=== PATIENT | male | born 1975 | race Caucasian/White ===

== ENCOUNTER 2022-09-17 16:47 | Emergency (ER) | payer OTHER, SELFPAY ==
[2022-09-17 16:56] VITALS: BP 145/87; PULSE 81; RESP 16; TEMP 36.4; O2SAT 97
--- NOTE | 2022-09-17 17:08 | ED.EAR ---
HPI - Ear Problem General Chief complaint: Ear Stated complaint: Ears Time Seen by Provider: 09/17/22 17:08 Source: patient and RN notes reviewed History of Present Illness HPI Narrative: Patient is a 47-year-old male who presents to urgent care with complaints of bilateral ears clogged. Patient states he has had for approximately 3 days with decreased hearing, pressure and pain. Patient has overrly used Q-tips. Also use [id number] drops. No other acute complaints. No acute distress noted. Patient aware of the plan of care. Some parts of this dictation were generated by voice recognition software and may contain typographical and/or grammatical inaccuracies. Related Data Home Medications Medication Instructions Recorded Confirmed modafinil 09/17/22 venlafaxine 09/17/22 Allergies Allergy/AdvReac Type Severity Reaction Status Date / Time tramadol AdvReac Intermediate Headache Verified 03/21/18 10:24 Review of Systems Review of Systems: CONSTITUTIONAL: Denies fever, chills, or sweats. EYES: Denies visual changes, redness, or discharge. ENT: Denies rhinorrhea, congestion, sore throat. Reports bilateral otalgia with decreased hearing CARDIOVASCULAR: Denies chest pain, palpitations, or edema. RESPIRATORY: Denies cough or dyspnea. GASTROINTESTINAL: Denies abdominal pain, nausea, vomiting, or diarrhea. GENITOURINARY: Denies dysuria or hematuria. SKIN: Denies rash or itching. MUSCULOSKELETAL: Denies back pain, joint pain, or myalgia. NEUROLOGIC: Denies headache, numbness, or weakness. All other systems reviewed are negative, except as documented in HPI. PMFSH Comments At the time of my signature, I reviewed and agree with the nursing past medical, surgical, social, and family history. There is no relevant family history pertinent to the patient complaint. Exam Narrative: GENERAL: This is a well-nourished, well-developed patient, in no apparent distress. HEAD: normocephalic, atraumatic. EYES: PERRL. Sclera clear/white. Vision is grossly intact. EARS: External ears normal, auditory canals clear and without drainage, unable to visualize bilateral TMs due to cerumen impaction. Hearing grossly intact. NOSE: External nose normal with no obvious nasal discharge, nares without redness, no rhinorrhea. THROAT: Mucous membranes moist, posterior pharynx clear. NECK: Neck supple, SKIN: warm, intact with no suspicious lesions or rash, good texture and turgor. NEURO: awake, alert, and oriented to person, place and time. There were no obvious focal neurologic abnormalities. EXTREMITIES: No clubbing, cyanosis, or edema. Course Course Level of Care: Express Care Visit Vital Signs Vital signs: Vital Signs Temperature 97.6 F 09/17/22 16:56 Pulse Rate 81 09/17/22 16:56 Respiratory Rate 16 09/17/22 16:56 Blood Pressure 145/87 H 09/17/22 16:56 Pulse Oximetry 97 09/17/22 16:56 Oxygen Delivery Room Air 09/17/22 16:56 Temperature 97.6 F 09/17/22 16:56 Pulse Rate 81 09/17/22 16:56 Respiratory Rate 16 09/17/22 16:56 Blood Pressure 145/87 H 09/17/22 16:56 Pulse Oximetry 97 09/17/22 16:56 Oxygen Delivery Room Air 09/17/22 16:56 Reviewed- Patient is informed that they may have pre-hypertension or hypertension based on a blood pressure reading in the department. I recommend the patient call the primary care provider listed on their discharge instructions or a physician of their choice this week to arrange follow-up for further evaluation of possible pre-hypertension or hypertension. Procedures Ear Wax Removal Both Ears: Cerumenolytic Used: other (50 50 peroxide and warm water and lighted curette) Results: Re-examined: cerumen removed completely TM Examination: TM(s) intact, normal appearance Ear Canal Exam: atraumatic Patient Tolerated Procedure: no complications Complications: no problems Medical Decision Making MDM Narrative Medical decision horacio
== END 2022-09-17 17:50 | disposition home or self-care (01) ==
PROVIDERS: Emergency Provider Nurse Practitioner Family; PCP Emergency Medicine
DX: H61.23 Impacted cerumen, bilateral (principal)
CPT/HCPCS: 69210; 99202; G0463

== ENCOUNTER 2022-10-04 09:33 | Outpatient (CLI) | payer OTHER, SELFPAY ==
--- NOTE | ~2022-10-04 | XR_ITS ---
EXAMINATION: XR chest 2V 10/04/2022 10:14 INDICATION: Prior tobacco use. PROCEDURE: 2 view chest COMPARISON: No prior studies for comparison. FINDINGS: The lungs are clear. The cardiomediastinal silhouette is within normal limits. There are no pleural effusions. There is no pneumothorax suspected. IMPRESSION: 1: NO ACUTE CARDIOPULMONARY DISEASE. Reviewed, dictated and finalized at location L.
[2022-10-04 10:11] LABS: Hematocrit 48.8 % (42.0-52.0); Hemoglobin 16.8 g/dL (14.0-18.0); Mean Corpuscular HGB Conc 34.4 g/dl (32-36); Mean Corpuscular Hemoglobin 33.1 pg (26-34); Mean Corpuscular Volume 96.1 fl (80-100); Mean Platelet Volume 10.3 fl (7.4-10.4); Platelet Count Result 237 k/mm3 (150-375); Red Blood Count 5.08 M/mm3 (4.6-6.20); Red Cell Distribution Width 12.9 % (11.5-14.5); White Blood Count 13.3 K/mm3 (4.5-10.0)
[2022-10-04 10:39] LABS: Alanine Aminotransferase 47 U/L (6-50); Albumin Level 4.8 g/dL (3.5-5.1); Alkaline Phosphatase 116 U/L (38-126); Anion Gap 5 mmol/L (8-16); Aspartate Amino Transferase 59 U/L (17-59); Bilirubin,Total 1.8 mg/dL (0.2-1.3); Blood Urea Nitrogen 13 mg/dL (9-20); Carbon Dioxide 29 mmol/L (22-30); Chloride 103 mmol/L (98-107); Cholesterol 244 mg/dL (0-200); Estimated Glomerular Filt Rate > 60; Glucose 116 mg/dL (65-110); HDL Direct 35 mg/dL; Sodium 137 mmol/L (137-145); Triglycerides 285 mg/dL (<150)
[2022-10-04 10:50] LABS: LDL Cholesterol Direct 146 mg/dL
[2022-10-04 11:11] LABS: Free T4 Free Thyroxine 0.78 ng/mL (0.78-2.19); Prostate Specific Antigen 1.8 ng/mL (< OR = 4.0)
[2022-10-04 11:25] LABS: Appearance Urine Cloudy (Clear); Bacteria Urine None Seen /hpf; Bilirubin Urine 1+ (Negative); Blood Urine Negative (Negative); Color Urine Dark Yellow (Yellow); Glucose Urine UA Negative (Negative); Ketones Urine Negative (Negative); Leukocyte Esterase Ur 1+ LEU/UL (NEGATIVE); Need Manual Microscopic Reviewed; Nitrate Urine Negative (Negative); Protein Urine Trace mg/dL (Negative); Specific Grav Ur 1.028 (1.001-1.035); Squamous Epithelial Cell Urine None seen /hpf (Few); WBC Urine 21-50 /hpf (0-3); pH Urine 5.5 (5.0-9.0)
[2022-10-04 11:28] LABS: Add Urine Microscopic? YES
== END 2022-10-04 09:34 | disposition home or self-care (01) ==
PROVIDERS: PCP Emergency Medicine; Visit Provider Emergency Medicine
DX: K43.2 Incisional hernia without obstruction or gangrene (principal); F41.9 Anxiety disorder, unspecified; F32.A Depression, unspecified; Z87.891 Personal history of nicotine dependence; Z80.0 Family history of malignant neoplasm of digestive organs
CPT/HCPCS: 36415; 71046; 80053; 80061; 81001; 84153; 84439; 84443; 85027

== ENCOUNTER 2022-10-11 02:17 | Day surgery (SDC) | payer OTHER, SELFPAY ==
[2022-10-04 10:26] VITALS: BMI 41.9
--- NOTE | 2022-10-04 10:30 | PC.NURSE ---
Report to the Outpatient Waiting Room, entrance under the green pavilion located off [facility], at time 10:00 on date 10/11/22. Planned Procedure Time: 12:00. Time changes happen often and if your time is changed the preop area will call you the afternoon before. - You and your visitor will be asked to self-screen and do not enter if you have any COVID symptoms. - A mask is optional within the hospital at this time. Patients may have clear liquids (water, carbonated beverages, clear teas, apple juice) until 3 hours prior to surgery (9:00) with a maximum of 20 ounces. - No food from midnight until time of surgery Take the following medications with a SIP of water the morning of surgery: DO NOT STOP ANY OF YOUR OTHER PRESCRIPTION MEDICATIONS PRIOR TO SURGERY EXCEPT THE FOLLOWING Medications to discontinue per physician Date to take last dose Please no make-up, nail kyrgyz, hairspray, perfume, deodorant, or body powder the day of surgery. No jewelry (including any body piercings) or valuables the day of surgery, leave them at home. Please take a shower or bath the night before, or the morning of, surgery with an antibacterial soap (HIBICLENS). Wear comfortable, loose fitting clothing. - Jewelry must be removed prior to entering the operating room. Rings and piercings that are not removed may be cut off. - The hospital will not accept responsibility for valuables. - Please leave all valuables, including medications, at home the day of surgery. If you are going home after surgery, a licensed patrol driver must drive you home. - NO public transportation without another adult if you receive anesthesia. - We recommend that an adult stay with you for 24 hours following discharge. - We also recommend that you do not drive, make important decision, drink alcoholic beverages, or take any drugs that were not prescribed by your health care provider for at least 24 hours after your discharge time. Follow any additional instructions given to you from your surgeon. If you or anyone in your household have experienced Covid symptoms in the past week, please notify your surgeon or the nurse liaison at the phone number below for possible testing. Telephone instructions given to RENE ALFARO and asked if any additional questions and then verbalized understanding. Patient advised to call surgeon office or pre surgery nurse liaison [phone] if any additional questions.
--- NOTE | 2022-10-04 10:33 | PC.NURSE ---
Report to the Outpatient Waiting Room, entrance under the green pavilion located off [facility], at time 1000 on date 10/11/22. Planned Procedure Time: 1200. Time changes happen often and if your time is changed the preop area will call you the afternoon before. - You and your visitor will be asked to self-screen and do not enter if you have any COVID symptoms. - A mask is optional within the hospital at this time. Patients may have clear liquids (water, carbonated beverages, clear teas, apple juice) until 3 hours prior to surgery with a maximum of 20 ounces. - No food from midnight until time of surgery Take the following medications with a SIP of water the morning of surgery: VENLAFAXINE DO NOT STOP ANY OF YOUR OTHER PRESCRIPTION MEDICATIONS PRIOR TO SURGERY EXCEPT THE FOLLOWING Medications to discontinue per physician: N/A Date to take last dose: N/A Please no make-up, nail cambodian, hairspray, perfume, deodorant, or body powder the day of surgery. No jewelry (including any body piercings) or valuables the day of surgery, leave them at home. Please take a shower or bath the night before, or the morning of, surgery with an antibacterial soap (HIBICLENS). Wear comfortable, loose fitting clothing. - Jewelry must be removed prior to entering the operating room. Rings and piercings that are not removed may be cut off. - The hospital will not accept responsibility for valuables. - Please leave all valuables, including medications, at home the day of surgery. If you are going home after surgery, a licensed tow car driver must drive you home. - NO public transportation without another adult if you receive anesthesia. - We recommend that an adult stay with you for 24 hours following discharge. - We also recommend that you do not drive, make important decision, drink alcoholic beverages, or take any drugs that were not prescribed by your health care provider for at least 24 hours after your discharge time. Follow any additional instructions given to you from your surgeon. If you or anyone in your household have experienced Covid symptoms in the past week, please notify your surgeon or the nurse liaison at the phone number below for possible testing. Telephone instructions given to PT - MICHAEL ALFARO and asked if any additional questions and then verbalized understanding. Patient advised to call surgeon office or pre surgery nurse liaison [phone] if any additional questions.
[2022-10-11] VITALS (14 sets, daily range): BP systolic 114–163; BP diastolic 65–98; PULSE 80–103; RESP 14–20; TEMP 35.1–37.1; O2SAT 92–97
--- NOTE | 2022-10-11 10:42 | P.PNAN_ITS ---
Anes - Initial Pre Proc Eval Procedure: Operation Date: 10/11/22 12:00 Proposed Procedures p Robotic Laparoscopic Incisional Hernia Repair - Jason Monterroso MD Date/Time: 10/11/22 10:42 Surgeon: Jason Monterroso MD Pre Op Diagnosis: incisional hernia Patient Data Age: 47 Gender: M Height: 1.83 m Weight: 140.2 kg Allergies Allergy/AdvReac Type Severity Reaction Status Date / Time tramadol AdvReac Intermediate Headache Verified 10/04/22 10:25 Home Medications Medication Instructions Recorded Confirmed Type modafinil 200 mg tablet 200 mg PO DAILY 10/04/22 10/04/22 History venlafaxine 150 mg 150 mg PO DAILY 10/04/22 10/04/22 History capsule,extended release 24 hr Patient hx anesthesia problems: none Family hx anesthesia problems: none Results Review: All pre-operative results and documents have been reviewed as part of the pre- operative evaluation. [facility] Past Medical History Medical History Anxiety Depression Kidney stones Surgical History Surgical History History of back surgery 2019 History of laparoscopic cholecystectomy 2009 History of lithotripsy Family History Family History (Updated 10/04/22 @ 09:06 by Natasha Valerio) Father Lung cancer Mother Hypertension Social History Social History (Updated 10/04/22 @ 09:07 by Natasha Valerio) Smoking packs per day: 0.5 Smoking cigarettes per day: 10.0 Years smoked: 17 Smoking pack-years: 8.50 Smoking status: Current every day smoker Tobacco type: cigarettes Alcohol intake: current Alcohol use details: VERY RARE Substance use: current Substance use type: marijuana Living arrangements: with family Spiritual care concerns: No Anes - Eval Final PreProcedure Day of Procedure 10/11/22 10:42 Patient weight: morbidly obese Heart: regular rate and rhythm Lungs: clear to auscultation Airway: Mallampati scale class II and special considerations poor dentition Neurological: alert and oriented Last oral intake: >/= 8 hours ASA classification: III Emergent: no Anesthetic plan: proceed Anesthesia type and monitoring: general ETT and standard monitoring Results Review: All pre-operative results and documents have been reviewed as part of the pre-o perative evaluation. Informed Consent: The patient's anesthetic plan and its attendant risks and benefits were discussed with the patient/family/POA. Questions were solicited and answers provided to the satisfaction of the patient/family/POA.
[2022-10-11] MEDS: KETOROLAC 15 MG/ML VIAL (*BKC) IV PUSH (10:50)
[2022-10-11] MEDS: ACETAMINOPHEN 500 MG TABLET 1000 MG PO (10:50)
[2022-10-11] MEDS: LACTATED RINGERS 1,000 ML 30 ML IV CONT ×2 (10:50→14:36)
--- NOTE | 2022-10-11 11:29 | WPDHPUPDATE1 ---
History and Physical Update Update Date/Time: 10/11/22 11:29 History and Physical has been reviewed, including an updated exam of the patient. There are NO changes in the patient's condition. Risks, benefits, and alternatives have been discussed and questions answered. Patient agrees to proceed with procedure.
[2022-10-11] MEDS: ceFAZolin 3 GM/D5W 100 ML 100 ML IVPB (11:53)
[2022-10-11] MEDS: BUPIVACAINE/EPINEPHRINE 0.5% 50 ML VIAL 20 ML INFILTRATE (12:47)
--- NOTE | 2022-10-11 15:23 | W.PM.PROC2 ---
Procedure Note - Detailed Date of Procedure 10/11/22 Pre-op Diagnosis incisional hernia Post-op Diagnosis Same Procedure Performed Robotic laparoscopic repair 5 cm ventral incisional hernia with mesh Surgeon Jason Monterroso MD Bear Keeper Greg TINSLEY Anesthesia General and Local (0.5% Marcaine with epinephrine) Indications Patient noted a bulge just above the umbilicus on the left side. It is painful when he coughs or strains. He had a laparoscopic cholecystectomy and it is very close to the incision from that surgery. He was seen in the office and found to have an incisional periumbilical hernia. He is taken to surgery now for robotic laparoscopic repair with mesh. Findings The largest hernia was 3 cm. There was 3 other hernias which were 1 cm, 6 mm, and 5 mm. These hernias were all within a cm of 1 another. They were all centered around the umbilicus. Description of Procedure Patient was taken to surgery and induced into general anesthesia. His left side was elevated with some towels to create a bump. This gave good exposure to the lateral side of his abdomen on the left. Prep and drape was carried out. The initial trocar was in the left subcostal position and was then applied Medical optical trocar. Local anesthetic was infiltrated prior to placement of each of the trocars. After the initial 5 mm trocar was placed, we then inserted a laparoscopic open and placed the left lower quadrant trocar as well as the intermediate trocar for the camera under direct visualization. These were both 8 mm robotic trocars. We then switched the camera and exchanged the 5 mm trocar for another 8 mm robotic trocar. We then brought in robot. The camera was docked and targeted. The 2 arms were then docked and instruments positioned near the hernia. The surgeon then went to the console. Some peritoneum and properitoneal fat in the hernia defect were reduced. Some fatty tissue in the anterior abdominal wall caudal to the hernia defect was then taken down to give ample room for the mesh. Dissection was done around the hernia defect and the 3 other hernia defects were found. One was to the right of the main hernia defect and was 1 cm. There were 2 smaller hernia defects caudal to the main hernia defect. Each of these were 6 mm and 5 mm respectively. All these hernias were reduced. I searched for any other defects and did not find any. I then freed the falciform ligament from the anterior abdominal wall and proceeded cephalad until there was adequate exposure of the anterior abdominal wall for mesh placement in this direction. An 0 V lock 180 suture was then passed into the abdomen. The hernia defect as well as the right-sided smaller defect were then closed transversely with running locking suture. The smaller defects were left as is. A 15 x [address] mesh was then placed in the peritoneal cavity. The V lock suture was passed through the center of the mesh and the mesh was placed on the anterior abdominal wall. It was placed such that it would cover all the hernia defects with at least 5 cm overlap in all directions. The V lock needle was used to keep the mesh in place at its center. Two 0 V lock was then used to secure the mesh to the anterior abdominal wall. We started on the right posterior aspect. Running suture was then placed proceeding 1st caudally and then around to the right side. Several 2 0 V lock suture were required. Once the mesh was sutured securely to the anterior abdominal wall, I used an additional 2 0 V lock and ran this suture in the midline along the length of the mesh to further secure it to the anterior abdominal wall and the hernia defect. All looked good. We then cut each of the suture and removed all the needles. The robot was undocked and CO2 was evacuated from the abdominal cavity. The trocars were removed. Skin wounds were closed with subcuticular 4-0 Monocryl skin suture. The wounds were dressed with Exofin surg
[2022-10-11] MEDS: fentaNYL CITRATE INJ (*CRX) 100 MCG/2 ML VIAL 25 MCG IV PUSH ×8 (15:26→16:07)
--- NOTE | 2022-10-11 16:30 | ADMGEN ---
This patient, Gino Hernandez, was admitted to Medical Room 245-. Patient/family oriented to hospital policies and general routines including ID bracelet, bed and alarms, visiting hours, pain management, procedures, bathroom and other care routines, personal items, smoking policy, room service/diet, and visiting hours. Information on how to activate the Rapid Response Team has been discussed. Patient/Family are encouraged to report perceived risks to care and to ask questions if they do not understand what they are told or what they should do.
[2022-10-11] MEDS: LACTATED RINGERS 1,000 ML 100 ML IV CONT (16:45)
[2022-10-11] MEDS: HYDROmorphone HCL INJ (*CRX) 1 MG/ML SYR IV PUSH (17:06)
[2022-10-11] MEDS: oxyCODONE/ACETAMINOPHEN (*CRX) 10-325 MG TABLET 1 TAB PO (20:37)
[2022-10-11] MEDS: SENNA/DOCUSATE SODIUM TABLET 2 TAB PO (20:38)
[2022-10-12 00:13] VITALS: BP 118/69; PULSE 92; RESP 20; TEMP 36.4; O2SAT 94
[2022-10-12] MEDS: ACETAMINOPHEN 500 MG TABLET PO (01:26)
[2022-10-12 04:54] VITALS: BP 129/83; PULSE 81; RESP 20; TEMP 36.4; O2SAT 92
[2022-10-12 05:00] VITALS: PULSE 81; RESP 20; O2SAT 92
[2022-10-12 06:28] LABS: Hematocrit 42.6 % (42.0-52.0); Hemoglobin 14.6 g/dL (14.0-18.0); Mean Corpuscular HGB Conc 34.3 g/dl (32-36); Mean Corpuscular Hemoglobin 32.8 pg (26-34); Mean Corpuscular Volume 95.7 fl (80-100); Mean Platelet Volume 10.6 fl (7.4-10.4); Platelet Count Result 226 k/mm3 (150-375); Red Blood Count 4.45 M/mm3 (4.6-6.20); Red Cell Distribution Width 12.3 % (11.5-14.5); White Blood Count 18.3 K/mm3 (4.5-10.0)
[2022-10-12 06:40] LABS: Anion Gap 8 mmol/L (8-16); Blood Urea Nitrogen 11 mg/dL (9-20); Calcium 8.8 mg/dL (8.4-10.2); Carbon Dioxide 25 mmol/L (22-30); Chloride 102 mmol/L (98-107); Estimated CRCL calculation 164 ml/min; Estimated Glomerular Filt Rate > 60; Glucose 125 mg/dL (65-110); Potassium 4.2 mmol/L (3.4-5.0); Sodium 135 mmol/L (137-145)
--- NOTE | 2022-10-12 07:19 | PM.DS ---
DS: Admitting Diagnosis Discharge Date 10/12/2022 Admitting Diagnosis INCISIONAL VENTRAL HERNIA DS: Discharge Diagnosis Discharge Diagnosis (1) Incisional hernia: Code(s): K43.2 - Incisional hernia without obstruction or gangrene Status: Chronic DS: Summary Hospital Course Hospital Course: Patient has history of laparoscopic cholecystectomy. He had an incision at the umbilicus. He presented with a bulge in the umbilical area associated with the scar. It was painful and could not fully be reduced. He was taken to surgery on 10/11/2022. He underwent robotic laparoscopic repair of the incisional hernia with mesh. He actually had the main 3 cm incisional hernia but also 3 other smaller hernias in the area making the overall defect size just over 5 cm. He had a 20 x [address] underlay mesh placed after primary closure of the hernia defect. Patient was observed overnight. He did well and was comfortable on oral analgesics. He was able to be discharged in good condition the day after surgery, 10/12/2022. Status at Discharge Overall status at discharge: patient is progressing back to baseline Time Spent with Patient Time attestation: Total time spent providing and/or coordinating discharge services: Time spent: Less than 30 minutes DS: Data Data Completed and Pending Labs on day of discharge: Labs from last 24 hours 10/12/22 10/12/22 10/11/22 06:11 06:11 10:40 WBC 18.3 H RBC 4.45 L Hgb 14.6 Hct 42.6 MCV 95.7 MCH 32.8 MCHC 34.3 RDW 12.3 Plt Count 226 MPV 10.6 H Sodium 135 L Potassium 4.2 Chloride 102 Carbon Dioxide 25 Anion Gap 8 BUN 11 Creatinine 0.70 Estim Creat Clear Calc 164 Estimated GFR > 60 Glucose 125 H Calcium 8.8 Blood Type A Positive Antibody Screen Negative Discharge Plan Discharge Patient Disposition: Home, Self-Care Discharge Instructions: 1. May shower or bathe, use soap to wash over incisions. 2. Call office for: -Wound increasingly painful or bleeding -Vomiting -Fever of greater than 101 degrees 3. Expect some blood on dressing and old blood on skin. 4. If no bowel movement for three days, take 1 oz. (30 ml) Milk of Magnesia, if no results, take Fleets enema. 5. No heavy lifting > 15-20 pounds for 2 weeks. 6. No driving for 3 days or while taking narcotic pain medications. 7. Up walking 10-30 minutes three times per day. 8. Resume previous home medications. 9. Follow-up 10-14 days in office for wound check or as previously scheduled. 10. Oral pain medications prescription to be sent home with patient. 11. NUTRITION: Start out by drinking fluids and increase your diet as tolerated. If you experience nausea, try dry toast, crackers, and 7-UP. If nausea or vomiting persists, contact your surgeon?s office. Patient Instructions: How to Stop Smoking (DC), Cigarette Smoking and Your Health (GEN), Electronic Cigarettes and Your Health (GEN) Follow-up/Referrals: Jason Monterroso MD [Physician] - 2 Weeks Discharge Medications: New polyethylene glycol 3350 [Miralax] 17 gram Powder In Packet 17 g PO QAM Qty: 14 0RF sennosides-docusate sodium [Senokot-S] 8.6-50 mg Tablet 2 tab PO HS Qty: 15 0RF ketorolac 10 mg tablet 10 mg PO Q6H 4 Days Qty: 16 0RF oxycodone-acetaminophen [Percocet] 5-325 mg tablet 1 - 2 tablet PO Q6H PRN (Reason: pain) Qty: 20 0RF Continued venlafaxine 150 mg capsule,extended release 24hr 150 mg PO DAILY modafinil 200 mg tablet 200 mg PO DAILY
[2022-10-12] MEDS: ENOXAPARIN 40 MG/0.4 ML SYRINGE SUB-Q (08:05)
[2022-10-12] MEDS: VENLAFAXINE HCL XR 75 MG CAP.ER.24H 150 MG PO (08:05)
[2022-10-12] MEDS: polyethylene glycoL 3350 17 GM POWD.PACK PO (08:06)
[2022-10-12] MEDS: oxyCODONE/ACETAMINOPHEN (*CRX) 5-325 MG TABLET 1 TABLET PO (08:12)
[2022-10-12] MEDS: modafiniL (*CRX) 200 MG TABLET PO (08:12)
[2022-10-12 10:35] VITALS: BP 116/76; PULSE 82; RESP 18; TEMP 36.4; O2SAT 94
== END 2022-10-12 11:25 | disposition home or self-care (01) ==
LOC: ANHSURGERY 14:39 → ANH2MED 16:27
PROVIDERS: PCP Emergency Medicine; Visit Provider Surgery
PROC: (CPT 49593; principal; 2022-10-11 12:00)
DX: K43.2 Incisional hernia without obstruction or gangrene (principal); F41.9 Anxiety disorder, unspecified; F32.A Depression, unspecified; F17.210 Nicotine dependence, cigarettes, uncomplicated; E66.01 Morbid (severe) obesity due to excess calories; Z68.41 Body mass index [BMI] 40.0-44.9, adult
CPT/HCPCS: 49593; S2900; 36415; 80048; 85027; 86850; 86900; 86901; A9270; C1781; J0690; J1100; J1170; J1650; J1885; J2250; J2405; J2704; J2710; J3010; J7030; J7120